=== PATIENT | female | born 1955 | race Caucasian/White ===

== ENCOUNTER 2016-06-30 18:55 | Emergency (ER) | payer OTHER ==
[~2016-06-30 18:55] MED LIST: CYMBALTA60 MG PO; DIOVAN40 MG PO; LEVAQUIN750 MG PO; LEVEMIR100 UNIT/1 SQ; LIPITOR TAB 2020 MG PO; LORTAB 10-3251 EACH PO; LYRICA25 MG PO; MUCINEX600 MG PO; NEURONTIN 300300 MG PO; NOVOLOG100 UNIT/1 SQ; ROBITUSSIN DM473 ML PO; TRAZODONE HCL50 MG PO; VICTOZA 1818 MG/3 ML SC
[2016-06-30 20:02] LABS: HEMOGLOBIN 11.6 gm/dl (12.3-15.3); RED BLOOD COUNT 4.03 M/UL (4.00-5.10); WHITE BLOOD COUNT 9.6 K/UL (4.5-11.0)
[2016-06-30 20:25] LABS: BUN/CREATININE RATIO 11 (0-10)
== END 2016-06-30 23:20 | disposition home or self-care (01) ==
LOC: ER1 18:55
PROVIDERS: Family Medicine
DX: R42 Dizziness and giddiness (principal); E11.65 Type 2 diabetes mellitus with hyperglycemia; E11.40 Type 2 diabetes mellitus with diabetic neuropathy, unspecified; Z88.2 Allergy status to sulfonamides; Z79.899 Other long term (current) drug therapy
CPT/HCPCS: 36415; 70450; 71010; 80053; 80307; 81001; 82550; 82553; 83874; 84484; 85025; 93005; 96360; 96361; 99284